=== PATIENT | female | born 1980 | race Caucasian/White ===

== ENCOUNTER 2022-12-29 06:49 | Day surgery (SDC) | payer OTHER ==
[~2022-12-29] VITALS: Ht 167.6 cm; Wt 108.0 kg
[2022-12-29] MEDS ORDERED: ceFAZolin 1,000 MG VIAL ONE ×2 (07:04→07:05)
[2022-12-29] MEDS ORDERED: BUPIVACAINE-MPF/EPI 0.25% 30 ML VIAL INJ ONE (07:04)
[2022-12-29] MEDS ORDERED: LIDOCAINE 1% 500 MG/50 ML VIAL ONE (07:04)
[2022-12-29] MEDS ORDERED: SEVOFLURANE 250 ML BTL INH ONE (08:11)
[2022-12-29] MEDS ORDERED: fentaNYL citrate 0.05 MG/ML VIAL ONE (08:26)
[2022-12-29] MEDS ORDERED: ROCURONIUM 50 MG/5 ML VIAL IV ONE (08:48)
[2022-12-29] MEDS ORDERED: PROPOFOL 200 MG/20 ML VIAL IV ONE ×2 (08:48)
[2022-12-29] MEDS ORDERED: ONDANSETRON 4 MG/2 ML VIAL ONE (08:49)
[2022-12-29] MEDS ORDERED: KETOROLAC 30 MG/ML VIAL ONE (08:49)
[2022-12-29] MEDS ORDERED: LACTATED RINGERS 1,000 ML IV SCH (09:30)
[2022-12-29] MEDS ORDERED: diphenhydrAMINE 50 MG/ML VIAL IVP PRN (09:30)
[2022-12-29] MEDS ORDERED: HYDROmorphone 1 MG/ML AMP IVP PRN (09:30)
[2022-12-29] MEDS ORDERED: LABETALOL 20 MG/4 ML VIAL IVP PRN (09:31)
[2022-12-29] MEDS ORDERED: hydrALAZINE 20 MG/ML VIAL IVP PRN (09:31)
[2022-12-29] MEDS ORDERED: METOCLOPRAMIDE 10 MG/2 ML INJ VIAL IVP PRN (09:31)
== END 2022-12-29 11:35 | disposition home or self-care (01) ==
LOC: MDS 06:49 → MMU 06:49 → MDS 11:35
PROVIDERS: ATTEND Surgery
DX: K43.9 Ventral hernia without obstruction or gangrene (principal); E66.01 Morbid (severe) obesity due to excess calories; Z20.822 Contact with and (suspected) exposure to COVID-19; Z90.49 Acquired absence of other specified parts of digestive tract; Z98.890 Other specified postprocedural states; Z87.891 Personal history of nicotine dependence; Z68.38 Body mass index [BMI] 38.0-38.9, adult; Z79.899 Other long term (current) drug therapy
CPT/HCPCS: 49593; 71045; 87426; 93005; C1781; J0690; J1885; J2001; J2405; J2704; J3010; J3490; J7060; J7120